=== PATIENT | male | born 1990 | race Caucasian/White ===

== ENCOUNTER 2017-02-15 16:31 | Emergency (ER) | payer MEDICAID ==
[~2017-02-15] VITALS: Ht 170.2 cm; Wt 65.8 kg
[~2017-02-15 16:31] MED LIST: DOXYCYCLINE100 M6 PO
--- OUTSIDE RECORDS SUMMARY | 2017-02-15 16:39 | External Medical Summary Rpt ---
Author Author COURTNEY [place] Organization [facility] Saint [place] Adams Address Unknown Phone Unavailable Care Team Providers Care Wood Model Maker Name Role Phone DR DUSTIN PCP [phone] Encounter [facility] [id number] Date(s): 09/03/16 - 09/03/16 [facility] Saint Jose Adams [address] [place] [address]- Discharge Diagnosis: Urethritis Discharge Disposition: OP Self Care or Home Attending Physician: LISA REYES MD Admitting Physician: LISA REYES MD Referring Physician: LISA REYES MD Reason for Visit CUTANEOUS ABSCESS OF RIGHT LOWER LIMB Vital Signs Most recent 1 to oldest [Reference Range]: Temperature Oral Source (09/03/16 6:22 PM) Temperature Fahrenheit Mode (09/03/16 6:22 PM) Temperature, 97.6 Deg F Fahrenheit (09/03/16 6:22 PM) [96.8-99.7 Deg F] Clinical 36.4 Deg C Temperature, (09/03/16 6:22 PM) C Peripheral 96 bpm Pulse Rate (09/03/16 6:22 PM) [60-100 bpm] Respiratory 16 Breaths/Min Rate [14-20 (09/03/16 6:22 PM) Breaths/Min] Blood 138/67 mmHg Pressure (09/03/16 6:22 PM) [90-140/60-9 0 mmHg] Oxygen 98 % Saturation (09/03/16 6:22 PM) [94-100 %] Oxygen Room air Therapy Mode (09/03/16 6:22 PM) Height Stated Source (09/03/16 6:22 PM) Height Entry Davie Format (09/03/16 6:22 PM) Height/Lengt 5 ft h, DANISH (09/03/16 6:22 PM) (ft) Height/Lengt 7 Inch h DANISH (09/03/16 6:22 PM) CLINICALHEIG 170.18 cm HT (09/03/16 6:22 PM) Weight Critical estimated dosing weight Source, ED (09/03/16 6:22 PM) Weight Entry Davie Format (09/03/16 6:22 PM) Weight 155 lb Mozambican lb (09/03/16 6:22 PM) CLINICALWEIG 70.45 kg HT (09/03/16 6:22 PM) Body Surface 1.82 m2 Area (BSA) (09/03/16 6:22 PM) Body Mass 24.3 kg/m2 Index (BMI) *HI* [19.0-24.0 (09/03/16 6:22 PM) kg/m2] Spencer Body 65 kg Weight (09/03/16 6:22 PM) Problem List No data available for this section Allergies, Adverse Reactions, Alerts No Known Medication Allergies Medications doxycycline (doxycycline monohydrate 100 mg oral capsule)1 Cap, Oral, Two Times A Day, 7 Day(s), Refills: 0Ordering provider: GEOVANY QUINTERO PA-SHANE Results URINALYSIS Most recent 1 to oldest [Reference Range]: Urine Type U CleanCatch (09/03/16 6:32 PM) Urine Color Yellow (09/03/16 6:32 PM) Urine Clear Appearance (09/03/16 6:32 PM) Urine 1.025 Specific (09/03/16 6:32 PM) [place] [1.005-1.030 ] Urine pH 7.0 Dipstick (09/03/16 6:32 PM) [6.0-8.0] Urine Negative Leukocyte (09/03/16 6:32 PM) Esterase [Negative] Urine Negative Nitrite (09/03/16 6:32 PM) [Negative] Urine 30 Protein *ABN* Dipstick (09/03/16 6:32 PM) [Negative] Urine Negative Glucose (09/03/16 6:32 PM) Dipstick [Negative] Urine Negative Ketones (09/03/16 6:32 PM) Dipstick [Negative] Urine 1.0 EU/dL Urobilinogen *ABN* Dipstick (09/03/16 6:32 PM) Urine Negative Bilirubin (09/03/16 6:32 PM) Dipstick [Negative] Urine Blood Negative Dipstick (09/03/16 6:32 PM) [Negative] Ur RBC 0-2 /HPF *ABN* (09/03/16 6:32 PM) Ur WBC 0-2 /HPF (09/03/16 6:32 PM) Ur Bacteria Trace *ABN* (09/03/16 6:32 PM) Ur Mucous Trace *ABN* (09/03/16 6:32 PM) Ur Squamous 0-2 /HPF Epithelial (09/03/16 6:32 PM) Cells Immunizations No data available for this section Procedures No data available for this section Social History Social History Response Type Smoking Status Never smoker Assessment and Plan No data available for this section Hospital Discharge Instructions Patient EducationUrethritis, Adult
--- OUTSIDE RECORDS SUMMARY | 2017-02-15 16:39 | External Medical Summary Rpt ---
Author Author COURTNEY [facility] Organization [facility] Saint Jose Adams Address Unknown Phone Unavailable Care Team Providers Care Book Canvasser Name Role Phone DR DUSTIN PCP [phone] Encounter [facility] [id number] Date(s): 09/03/16 - 09/03/16 [facility] [place] Adams [address] [place] [address]- Discharge Diagnosis: Urethritis Discharge Disposition: OP Self [...] Stated Source (09/03/16 6:22 PM) Height Entry [place] Format (09/03/16 6:22 PM) Height/Lengt 5 ft h, ICELANDIC (09/03/16 6:22 PM) (ft) Height/Lengt 7 Inch h ICELANDIC (09/03/16 6:22 PM) CLINICALHEIG 170.18 cm HT (09/03/16 6:22 PM) Weight Critical estimated dosing weight Source, ED (09/03/16 6:22 PM) Weight Entry Dickinson Format (09/03/16 6:22 PM) Weight 155 lb American lb (09/03/16 6:22 PM) CLINICALWEIG 70.45 kg HT (09/03/16 6:22 PM) Body Surface 1.82 m2 Area (BSA) (09/03/16 6:22 PM) Body Mass 24.3 kg/m2 Index (BMI) *HI* [19.0-24.0 (09/03/16 6:22 PM) kg/m2] [place] Body 65 kg Weight (09/03/16 6:22 PM) [...] PM) Urine 1.025 Specific (09/03/16 6:32 PM) [place] [1.005-1.030 ] Urine pH 7.0 Dipstick (09/03/16 [...]
--- OUTSIDE RECORDS SUMMARY | 2017-02-15 16:41 | External Medical Summary Rpt | CCD ---
Author Author , ANGEL ORTIZ Address Unknown Phone [email or web address] Purpose Continuity of Care Document - 05-23-2016 through 2016 Problems Code Diagnosis DOS Provider Status Z20.2 CONTACT W AND EXPOSURE TO INFECT W A SEXL MODE OF TRANSMISS Results Labs Lab Lab Date Result Refere Interp Status Commen Order Detail nces retati t Range on HEPATITIS C VIRUS SCREEN (09-20-2016 16:15) HEPATIT NON-INNA complet IS C 017 CTIVE ed VIRUS 16:15 SCREEN CHLAMYDIA AND GONORRHEA TESTING (09-20-2016 16:15) Chlamyd NEGATIV complet ia 017 E ed trachom 16:15 atis rRNA [Presen ce] in Unspeci fied specime n by Probe & target amplifi cation method Neisser NEGATIV complet ia 017 E ed gonorrh 16:15 oeae rRNA [Presen ce] in Unspeci fied specime n by Probe & target amplifi cation method Treponema pallidum IgG Ab [Presence] in Serum by Immunoassay (09-20-2016 16:15) Trepone NON-INNA complet ma 017 CTIVE ed pallidu 16:15 m IgG Ab [Presen ce] in Serum by Immunoa ssay HEPATITIS C VIRUS SCREEN (09-20-2016 16:15) IV DRUG NO complet USER 017 ed 16:15 MAN WHO NO complet SLEEPS 017 ed WITH 16:15 MEN DATE OF 2016- complet 017 -13 ed SPECIME 16:15 FREEZER N REFRIGE RATION SPECIME PPT complet N TYPE 017 ed 16:15 PREVIOU NO complet S 017 ed POSITIV 16:15 E HEPC ANTIBOD Y TEST HEPATIT Pending complet IS C 017 ed VIRUS 16:15 SCREEN CHLAMYDIA AND GONORRHEA TESTING (09-20-2016 16:15) COLLECT RN complet OR 017 ed 16:15 ETHNICI WHITE, complet TY 017 NON-HIS ed 16:15 PANIC KIT 09-20- 08-31-1 complet EXPIRAT 017 7 ed ION 16:15 DATE SYMPTOM YES complet S 017 ed 16:15 REASON SEX complet FOR 017 PARTNER ed REQUEST 16:15 REFERRA L SPECIME URINE complet N 017 ed SOURCE 16:15 PREGNAN NO complet T 017 ed 16:15 CHART [id number] complet NUMBER [id number] ed 16:15 Chlamyd Pending complet ia 017 ed trachom 16:15 atis rRNA [Presen ce] in Unspeci fied specime n by Probe & target amplifi cation method Neisser Pending complet ia 017 ed gonorrh 16:15 oeae rRNA [Presen ce] in Unspeci fied specime n by Probe & target amplifi cation method Treponema pallidum IgG Ab [Presence] in Serum by Immunoassay (09-20-2016 16:15) COLLECT RN complet OR 017 ed 16:15 ETHNICI W complet TY 017 ed 16:15 PURPOSE DIAGNOS complet OF 017 TIC ed EXAM 16:15 SPECIME BLOOD complet N 017 ed SOURCE 16:15 CHART [id number] complet NUMBER [id number] ed 16:15 Trepone Pending complet ma 017 ed pallidu 16:15 m IgG Ab [Presen ce] in Serum by Immunoa ssay CHLAMYDIA AND GONORRHEA TESTING (05-23-2016 08:30) Chlamyd NEGATIV complet ia 017 E ed trachom 08:30 atis rRNA [Presen ce] in Unspeci fied specime n by Probe & target amplifi cation method Neisser NEGATIV complet ia 017 E ed gonorrh 08:30 oeae rRNA [Presen ce] in Unspeci fied specime n by Probe & target amplifi cation method CHLAMYDIA AND GONORRHEA TESTING (05-23-2016 08:30) COLLECT SR complet OR 017 ed 08:30 ETHNICI WHITE, complet TY 017 NON-HIS ed 08:30 PANIC KIT 2017- complet EXPIRAT 017 -31 ed ION 08:30 DATE SYMPTOM NO complet S 017 ed 08:30 REASON VOLUNTE complet FOR 017 ER/MEDI ed REQUEST 08:30 REANNA PROBLEM SPECIME URINE complet N 017 ed SOURCE 08:30 PREGNAN NO complet T 017 ed 08:30 CHART NA complet NUMBER 017 ed 08:30 Chlamyd Pending complet ia 017 ed trachom 08:30 atis rRNA [Presen ce] in Unspeci fied specime n by Probe & target amplifi cation method Neisser Pending complet ia 017 ed gonorrh 08:30 oeae rRNA [Presen ce] in Unspeci fied specime n by Probe & target amplifi cation method
--- OUTSIDE RECORDS SUMMARY | 2017-02-15 16:41 | External Medical Summary Rpt | CCD ---
Author Author [facility] Organization [facility] Address Unknown Phone Unavailable Purpose Continuity of Care Document - through 2016
--- OUTSIDE RECORDS SUMMARY | 2017-02-15 16:41 | External Medical Summary Rpt | CCD ---
Author Author , ANGEL ORTIZ Address Unknown Phone [email or web address] Purpose Continuity of Care Document - 05-23-2016 [...] NO complet T 017 ed 16:15 CHART [id number] complet NUMBER [id number] 51 ed 16:15 Chlamyd [...] complet N 017 ed SOURCE 16:15 CHART [id number] complet NUMBER [id number] 51 ed 16:15 Trepone [...]
--- NOTE | 2017-02-15 16:42 | Emergency Room Report ---
History of Present Illness Time Seen by MD Silva Comment The patient is brought in by police. He complains of LEFT knee pain. He says that he has injured it a couple of times, starting about a week ago. He says that something on the lateral side feels like it pops out of place. However, he states that the kneecap does not move and it does not sound like a dislocated patella. It happened for the third time today when being chased by police. He has some abrasions, he denies any other injuries or medical complaints. He is on no medications. ALLERGIES Coded Allergies: No Known Allergies (02/26/16) Home Medications Active Scripts DOXYCYCLINE HYCLATE (Doxycycline Hyclate) 100 MG PO BID #28 CAP Prov: 02/26/16 History Medical History General CAD? No Angina: No MO: No Hypertension? No Hyperlipidemia? No CHF? No DVT? No PE? No COPD? No Asthma? No Anemia? No GERD? No Gastric ulcers? No GI Bleed? No Hernia? No Thyroid Problems? No Hypothyroidism? No CVA? No Seizures? No Diabetes? No Renal Insuffiency? No End Stage Renal Disease? No UTI? No Stones? No BPH? No GB Disease: No Nephritic Syndrome? No Asplenia? No Hepatitis? No Sickle Cell Disease? No Arthritis? No Migraines? No Cataracts? No Glaucoma? No MRSA? No HIV? No TB? No Anxiety? No Depression? No Cancer? No More? No Immunization Hx Ped.Immunizations UTD Yes DT/Tetanus Unknown Surgical Hx Previous Surgery?N Social History Smoking Hx Smoker: Never Smoker Tobacco: No Type N/A Are you/the child exposed to second-hand smoke: No Alcohol Alcohol: No Review of Systems All Other Systems Reviewed and Negative Musculoskeletal joint pain Skin see HPI Physical Exam Vital Signs Vital Signs Date Time Temp Pulse Resp B/P Pulse O2 O2 Flow FiO2 Ox Delivery Rate 02/15 1701 97.7 92 18 138/88 99 02/15 1633 97.7 85 18 152/79 99 General Appearance no apparent distress, in handcuffs and leg shackles., superficial abrasions on skin, scattered Eye Exam - bilateral eye normal exam, bilateral eye PERRL, bilateral eye EOMI Ear, Nose, Throat hearing grossly normal, normal ENT inspection Neck supple, full range of motion Respiratory Status No: respiratory distress. Lung Sounds bilateral: normal breath sounds, lungs clear. Cardiovascular regular rate/rhythm, no murmur, normal peripheral pulses Peripheral Pulses Pulses normal Yes Gastrointestinal normal bowel sounds, normal exam, non tender Back normal inspection Extremities no effusion or deformity of LEFT knee. Tenderness laterally. Normal range of motion. Normal neurovascular status. Neurologic alert, compatibility test engineer II-XII nml as tested, normal exam, no motor/sensory deficits Medical Decision Making LABS/Meds/Orders Pt receiving controlled substance in ED? No Results/Orders Orders Procedure Date/time Status KNEE-3 VIEWS-LT 02/15 1639 Active XRAY/CT/US XRAY/CT/US XRAY knee Comment X-ray interpreted by Jose Santos MD. Negative for fracture, dislocation, or foreign body. Progress - The patient has been medically evaluated and I find no significant medical condition to prevent disposition to [facility]. The patient is medically cleared. Departure Departure Disposition DC Home or Self Care(routine) Clinical Impression Primary Impression: Left knee sprain Qualifiers: Encounter type: initial encounter Involved ligament of knee: unspecified ligament Qualified Code: S83.92XA - Sprain of unspecified site of left knee, initial encounter Condition STABLE Referrals NO REFERRAL Matthew Mcdonnell MD Orthopedics: Call for appointment Patient Instructions DI for Knee Sprain Additional Instructions Follow-up with orthopedics after you are released from [facility]. ED Critical Care Critical Care No at 1804
--- NOTE | 2017-02-15 16:42 | Emergency Room Report ---
History of Present Illness Time Seen by MD Silva Comment The patient is brought in by police. He complains of LEFT knee pain. He says that he has injured it a couple of times, starting about a week ago. He says that something on the lateral side feels like it pops out of place. However, he states that the kneecap does not move and it does not sound like a dislocated patella. It happened for the third time today when being chased by police. He has some abrasions, he denies any other injuries or medical complaints. He is on no medications. ALLERGIES Coded Allergies: No Known Allergies (02/26/16) Home Medications Active Scripts DOXYCYCLINE HYCLATE (Doxycycline Hyclate) 100 MG PO BID #28 CAP Prov: 02/26/16 History Medical History General CAD? No Angina: No CA: No Hypertension? No Hyperlipidemia? No CHF? No DVT? No PE? No COPD? No Asthma? No Anemia? No GERD? No Gastric ulcers? No GI Bleed? No Hernia? No Thyroid Problems? No Hypothyroidism? No CVA? No Seizures? No Diabetes? No Renal Insuffiency? No End Stage Renal Disease? No UTI? No Stones? No BPH? No GB Disease: No Nephritic Syndrome? No Asplenia? No Hepatitis? No Sickle Cell Disease? No Arthritis? No Migraines? No Cataracts? No Glaucoma? No MRSA? No HIV? No TB? No Anxiety? No Depression? No Cancer? No More? No Immunization Hx Ped.Immunizations UTD Yes DT/Tetanus Unknown Surgical Hx Previous Surgery?N Social History Smoking Hx Smoker: Never Smoker Tobacco: No Type N/A Are you/the child exposed to second-hand smoke: No Alcohol Alcohol: No Review of Systems All Other Systems Reviewed and Negative Musculoskeletal joint pain Skin see HPI Physical Exam Vital Signs Vital Signs Date Time Temp Pulse Resp B/P Pulse O2 O2 Flow FiO2 Ox Delivery Rate 02/15 1701 97.7 92 18 138/88 99 02/15 1633 97.7 85 18 152/79 99 General Appearance no apparent distress, in handcuffs and leg shackles., superficial abrasions on skin, scattered Eye Exam - bilateral eye normal exam, bilateral eye PERRL, bilateral eye EOMI Ear, Nose, Throat hearing grossly normal, normal ENT inspection Neck supple, full range of motion Respiratory Status No: respiratory distress. Lung Sounds bilateral: normal breath sounds, lungs clear. Cardiovascular regular rate/rhythm, no murmur, normal peripheral pulses Peripheral Pulses Pulses normal Yes Gastrointestinal normal bowel sounds, normal exam, non tender Back normal inspection Extremities no effusion or deformity of LEFT knee. Tenderness laterally. Normal range of motion. Normal neurovascular status. Neurologic alert, insecticide maker II-XII nml as tested, normal exam, no motor/sensory deficits Medical Decision Making LABS/Meds/Orders Pt receiving controlled substance in ED? No Results/Orders Orders Procedure Date/time Status KNEE-3 VIEWS-LT 02/15 1639 Active XRAY/CT/US XRAY/CT/US XRAY knee Comment X-ray interpreted by Jose Santos MD. Negative for fracture, dislocation, or foreign body. Progress - The patient has been medically evaluated and I find no significant medical condition to prevent disposition to prison. The patient is medically cleared. Departure Departure Disposition DC Home or Self Care(routine) Clinical Impression Primary Impression: Left knee sprain Qualifiers: Encounter type: initial encounter Involved ligament of knee: unspecified ligament Qualified Code: S83.92XA - Sprain of unspecified site of left knee, initial encounter Condition STABLE Referrals NO REFERRAL Matthew Mcdonnell MD Orthopedics: Call for appointment Patient Instructions DI for Knee Sprain Additional Instructions Follow-up with orthopedics after you are released from prison. ED Critical Care Critical Care No at 1804
--- OUTSIDE RECORDS SUMMARY | 2017-02-15 16:42 | External Medical Summary Rpt | CCD ---
Demographics Preferred Language Maldivian Marital Status Unknown Sabianist Affiliation Unknown Race Unknown Ethnic Group Unknown Author Author , ANGEL ORTIZ Address Unknown Phone Immunization No patient found.
--- OUTSIDE RECORDS SUMMARY | 2017-02-15 16:42 | External Medical Summary Rpt ---
Author Author ANGEL PlaySay, ANGEL [employer] Organization [employer] Address Unknown Phone Unavailable Results HEPATITIS C VIRUS SCREEN Observa Value Referen Units Interpr Notes Date tion ce etation Range IV DRUG NO No No No No Sep 20 USER informa informa informa informa 2017 tion in tion in tion in tion in 4:15 PM source source source source data data data data MAN WHO NO No No No No Sep 20 SLEEPS informa informa informa informa 2017 WITH tion in tion in tion in tion in 4:15 PM MEN source source source source data data data data DATE OF 2016-09 No No No No Sep 20 - informa informa informa informa 2017 SPECIME FREEZER tion in tion in tion in tion in 4:15 PM N source source source source REFRIGE data data data data RATION SPECIME PPT No No No No Sep 20 N TYPE informa informa informa informa 2017 tion in tion in tion in tion in 4:15 PM source source source source data data data data PREVIOU NO No No No No Sep 20 S informa informa informa informa 2017 POSITIV tion in tion in tion in tion in 4:15 PM E HEPC source source source source ANTIBOD data data data data Y TEST HEPATIT NON-INNA No No No METHOD Sep 20 IS C CTIVE informa informa informa OF 2017 VIRUS tion in tion in tion in ANALYSI 4:15 PM SCREEN source source source S: data data data EIANORM AL RANGE: NON REACTIV E\.br\T his report contain s patient informa tion that must be protect ed in accorda nce with the Health Insuran ce Portabi lity and Account ability Act. CHLAMYDIA AND GONORRHEA TESTING Observa Value Referen Units Interpr Notes Date tion ce etation Range COLLECT RN No No No No Sep 20 OR informa informa informa informa 2017 tion in tion in tion in tion in 4:15 PM source source source source data data data data ETHNICI WHITE, No No No No Sep 20 TY NON-HIS informa informa informa informa 2017 PANIC tion in tion in tion in tion in 4:15 PM source source source source data data data data KIT 08-31-1 No No No No Sep 20 EXPIRAT 7 informa informa informa informa 2017 ION tion in tion in tion in tion in 4:15 PM DATE source source source source data data data data SYMPTOM YES No No No No Sep 20 S informa informa informa informa 2017 tion in tion in tion in tion in 4:15 PM source source source source data data data data REASON SEX No No No No Sep 20 FOR PARTNER informa informa informa informa 2017 REQUEST tion in tion in tion in tion in 4:15 PM REFERRA source source source source L data data data data SPECIME URINE No No No No Sep 20 N informa informa informa informa 2017 SOURCE tion in tion in tion in tion in 4:15 PM source source source source data data data data PREGNAN NO No No No No Sep 20 T informa informa informa informa 2017 tion in tion in tion in tion in 4:15 PM source source source source data data data data CHART [id number] No No No No Sep 20 NUMBER 51 informa informa informa informa 2017 tion in tion in tion in tion in 4:15 PM source source source source data data data data Chlamyd NEGATIV No No No NEGATIV Sep 20 ia E informa informa informa E 2017 trachom tion in tion in tion in RESULT= 4:15 PM atis source source source WITHIN rRNA data data data NORMAL [Presen ce] in LIMITSP Unspeci OSITIVE fied specime RESULT= n by Probe & ABNORMA target LEQUIVO REANNA amplifi RESULT= cation method INDETER MINATEU NSATISF ACTORY RESULT= INVALID Neisser NEGATIV No No No NEGATIV Sep 20 ia E informa informa informa E 2017 gonorrh tion in tion in tion in RESULT= 4:15 PM oeae source source source WITHIN rRNA data data data NORMAL [Presen ce] in LIMITSP Unspeci OSITIVE fied specime RESULT= n by Probe & ABNORMA target LEQUIVO REANNA amplifi RESULT= cation method INDETER MINATEU NSATISF ACTORY RESULT= INVALID THE APTIMA COMBO 2 ASSAY IS NOT INTENDE D FOR THE EVALUAT ION OF SUSPECT EDSEXUA L ABUSE OR FOR OTHER MEDICO- LEGAL INDICAT IONS. FOR THOSE PATIENT S FORWHOM A FALSE POSITIV E RESULT MAY HAVE ADVERSE PSYCHO- SOCIAL IMPACT, THE [facility] MMENDS RETESTI NG.\.br \This report contain s patient informa tion that [facility] Insuran ce Portabi lity and Account ability Act. Treponema pallidum IgG Ab [Presence] in Serum by Immunoassay Observa Value Referen Units Interpr Notes Date tion ce etation Range COLLECT RN No No No No Sep 20 OR informa informa informa informa 2017 tion in tion in tion in tion in 4:15 PM source source source source data data data data ETHNICI W No No No No Sep 20 TY informa informa informa informa 2017 tion in tion in tion in tion in 4:15 PM source source source source data data data data PURPOSE DIAGNOS No No No No Sep 20 OF TIC informa informa informa informa 2017 EXAM tion in tion in tion in tion in 4:15 PM source source source source data data data data SPECIME BLOOD No No No No Sep 20 N informa informa informa informa 2017 SOURCE tion in tion in tion in tion in 4:15 PM source source source source data data data data CHART [id number] No No No No Sep 20 NUMBER 51 informa informa informa informa 2017 tion in tion in tion in tion in 4:15 PM source source source source data data data data Trepone NON-INNA No No No METHOD Sep [address] informa informa informa OF 2017 pallidu tion in tion in tion in ANALYSI 4:15 PM m IgG source source source S: Ab data data data EIANORM [Presen AL ce] in RANGE: Serum NON-INNA by CTIVE\. Immunoa br\This ssay report contain s patient informa tion that [facility] with [facility] Health Insuran ce Portabi lity and Account ability Act. HEPATITIS C VIRUS SCREEN Observa Value Referen Units Interpr Notes Date tion ce etation Range IV DRUG NO No No No No Sep 20 USER informa informa informa informa 2017 tion in tion in tion in tion in 4:15 PM source source source source data data data data MAN WHO NO No No No No Sep 20 SLEEPS informa informa informa informa 2017 WITH tion in tion in tion in tion in 4:15 PM MEN source source source source data data data data DATE OF 2016-09 No No No No Sep 20 - informa informa informa informa 2017 SPECIME FREEZER tion in tion in tion in tion in 4:15 PM N source source source source REFRIGE data data data data RATION SPECIME PPT No No No No Sep 20 N TYPE informa informa informa informa 2017 tion in tion in tion in tion in 4:15 PM source source source source data data data data PREVIOU NO No No No No Sep 20 S informa informa informa informa 2017 POSITIV tion in tion in tion in tion in 4:15 PM E HEPC source source source source ANTIBOD data data data data Y TEST HEPATIT Pending No No No \.br\Sep 20 IS C informa informa informa is 2017 VIRUS tion in tion in tion in report 4:15 PM SCREEN source source source contain data data data s patient informa tion that must be protect ed in accorda nce with the Health Insuran ce Portabi lity and Account ability Act. CHLAMYDIA AND GONORRHEA TESTING Observa Value Referen Units Interpr Notes Date tion ce etation Range COLLECT RN No No No No Sep 20 OR informa informa informa informa 2017 tion in tion in tion in tion in 4:15 PM source source source source data data data data ETHNICI WHITE, No No No No Sep 20 TY NON-HIS informa informa informa informa 2017 PANIC tion in tion in tion in tion in 4:15 PM source source source source data data data data KIT 08-31-1 No No No No Sep 20 EXPIRAT 7 informa informa informa informa 2017 ION tion in tion in tion in tion in 4:15 PM DATE source source source source data data data data SYMPTOM YES No No No No Sep 20 S informa informa informa informa 2017 tion in tion in tion in tion in 4:15 PM source source source source data data data data REASON SEX No No No No Sep 20 FOR PARTNER informa informa informa informa 2017 REQUEST tion in tion in tion in tion in 4:15 PM REFERRA source source source source L data data data data SPECIME URINE No No No No Sep 20 N informa informa informa informa 2017 SOURCE tion in tion in tion in tion in 4:15 PM source source source source data data data data PREGNAN NO No No No No Sep 20 T informa informa informa informa 2017 tion in tion in tion in tion in 4:15 PM source source source source data data data data CHART [id number] No No No No Sep 20 NUMBER 51 informa informa informa informa 2017 tion in tion in tion in tion in 4:15 PM source source source source data data data data Chlamyd Pending No No No No Sep 20 ia informa informa informa informa 2017 trachom tion in tion in tion in tion in 4:15 PM atis source source source source rRNA data data data data [Presen ce] in Unspeci fied specime n by Probe & target amplifi cation method Neisser Pending No No No \.br\Sep 20 ia informa informa informa is 2017 gonorrh tion in tion in tion in report 4:15 PM oeae source source source contain rRNA data data data s [Presen patient ce] in Unspeci informa fied tion specime that n by must be Probe & target protect ed in amplifi accorda cation nce method with the Health Insuran ce Portabi lity and Account ability Act. Treponema pallidum IgG Ab [Presence] in Serum by Immunoassay Observa Value Referen Units Interpr Notes Date tion ce etation Range COLLECT RN No No No No Sep 20 OR informa informa informa informa 2017 tion in tion in tion in tion in 4:15 PM source source source source data data data data ETHNICI W No No No No Sep 20 TY informa informa informa informa 2017 tion in tion in tion in tion in 4:15 PM source source source source data data data data PURPOSE DIAGNOS No No No No Sep 20 OF TIC informa informa informa informa 2017 EXAM tion in tion in tion in tion in 4:15 PM source source source source data data data data SPECIME BLOOD No No No No Sep 20 N informa informa informa informa 2017 SOURCE tion in tion in tion in tion in 4:15 PM source source source source data data data data CHART [id number] No No No No Sep 20 NUMBER 51 informa informa informa informa 2017 tion in tion in tion in tion in 4:15 PM source source source source data data data data Trepone Pending No No No \.br\Sep 20 ma informa informa informa is 2017 pallidu tion in tion in tion in report 4:15 PM m IgG source source source contain Ab data data data s [Presen patient ce] in Serum informa by rebecca Immunoa that ssay must be protect ed in accorda nce with the Health Insuran ce Portabi lity and Account ability Act. CHLAMYDIA AND GONORRHEA TESTING Observa Value Referen Units Interpr Notes Date tion ce etation Range COLLECT SR No No No No May 23 OR informa informa informa informa 2017 tion in tion in tion in tion in 8:30 AM source source source source data data data data ETHNICI WHITE, No No No No May 23 TY NON-HIS informa informa informa informa 2017 PANIC tion in tion in tion in tion in 8:30 AM source source source source data data data data KIT 2017- No No No No May 23 EXPIRAT -31 informa informa informa informa 2017 ION tion in tion in tion in tion in 8:30 AM DATE source source source source data data data data SYMPTOM NO No No No No May 23 S informa informa informa informa 2017 tion in tion in tion in tion in 8:30 AM source source source source data data data data REASON VOLUNTE No No No No May 23 FOR ER/MEDI informa informa informa informa 2017 REQUEST REANNA tion in tion in tion in tion in 8:30 AM PROBLEM source source source source data data data data SPECIME URINE No No No No May 23 N informa informa informa informa 2017 SOURCE tion in tion in tion in tion in 8:30 AM source source source source data data data data PREGNAN NO No No No No May 23 T informa informa informa informa 2017 tion in tion in tion in tion in 8:30 AM source source source source data data data data CHART NA No No No No May 23 NUMBER informa informa informa informa 2017 tion in tion in tion in tion in 8:30 AM source source source source data data data data Chlamyd NEGATIV No No No NEGATIV May 23 ia E informa informa informa E 2017 trachom tion in tion in tion in RESULT= 8:30 AM atis source source source WITHIN rRNA data data data NORMAL [Presen ce] in LIMITSP Unspeci OSITIVE fied specime RESULT= n by Probe & ABNORMA target LEQUIVO REANNA amplifi RESULT= cation method INDETER MINATEU NSATISF ACTORY RESULT= INVALID Neisser NEGATIV No No No NEGATIV May 23 ia E informa informa informa E 2017 gonorrh tion in tion in tion in RESULT= 8:30 AM oeae source source source WITHIN rRNA data data data NORMAL [Presen ce] in LIMITSP Unspeci OSITIVE fied specime RESULT= n by Probe & ABNORMA target LEQUIVO REANNA amplifi RESULT= cation method INDETER MINATEU NSATISF ACTORY RESULT= INVALID THE APTIMA COMBO 2 ASSAY IS NOT INTENDE D FOR THE EVALUAT ION OF SUSPECT EDSEXUA L ABUSE OR FOR OTHER MEDICO- LEGAL INDICAT IONS. FOR THOSE PATIENT S FORWHOM A FALSE POSITIV E RESULT MAY HAVE ADVERSE PSYCHO- SOCIAL IMPACT, [facility] MM[facility] RET[facility] NG.\.br \This report contain s patient informa tion that must be protect ed in accorda nce with the Health Insuran ce Portabi lity and Account ability Act. CHLAMYDIA AND GONORRHEA TESTING Observa Value Referen Units Interpr Notes Date tion ce etation Range COLLECT SR No No No No May 23 OR informa informa informa informa 2017 tion in tion in tion in tion in 8:30 AM source source source source data data data data ETHNICI WHITE, No No No No Feb 13 TY NON-HIS informa informa informa informa 2017 PANIC tion in tion in tion in tion in 8:30 AM source source source source data data data data KIT 2017- No No No No May 23 EXPIRAT -31 informa informa informa informa 2017 ION tion in tion in tion in tion in 8:30 AM DATE source source source source data data data data SYMPTOM NO No No No No May 23 S informa informa informa informa 2017 tion in tion in tion in tion in 8:30 AM source source source source data data data data REASON VOLUNTE No No No No May 23 FOR ER/MEDI informa informa informa informa 2017 REQUEST REANNA tion in tion in tion in tion in 8:30 AM PROBLEM source source source source data data data data SPECIME URINE No No No No May 23 N informa informa informa informa 2017 SOURCE tion in tion in tion in tion in 8:30 AM source source source source data data data data PREGNAN NO No No No No May 23 T informa informa informa informa 2017 tion in tion in tion in tion in 8:30 AM source source source source data data data data CHART NA No No No No May 23 NUMBER informa informa informa informa 2017 tion in tion in tion in tion in 8:30 AM source source source source data data data data Chlamyd Pending No No No No May 23 ia informa informa informa informa 2017 trachom tion in tion in tion in tion in 8:30 AM atis source source source source rRNA data data data data [Presen ce] in Unspeci fied specime n by Probe & target amplifi cation method Neisser Pending No No No \.br\Th May 23 ia informa informa informa is 2017 gonorrh tion in tion in tion in report 8:30 AM oeae source source source contain rRNA data data data s [Presen patient ce] in Unspeci informa fied tion specime that n by must be Probe & target protect ed in amplifi accorda cation nce method with the Health Insuran ce Portabi lity and Account ability Act.
--- OUTSIDE RECORDS SUMMARY | 2017-02-15 16:42 | External Medical Summary Rpt ---
Author Author ANGEL mobli, [employer] Organization [employer] Address Unknown Phone Unavailable [...] source source data data data data CHART [id number] No No No No Sep 20 NUMBER [...] tion that must be protect ed [facility] with the Health Insuran ce Portabi lity [...] source source data data data data CHART [id number] No No No No Sep 20 NUMBER [...] tion that must be protect ed [facility] with the Health Insuran ce Portabi lity [...] source source data data data data CHART [id number] No No No No Sep 20 NUMBER [...] source source data data data data CHART [id number] No No No No Sep 20 NUMBER [...] MAY HAVE ADVERSE PSYCHO- SOCIAL IMPACT, [facility] NG.\.br \This report contain s [...]
--- OUTSIDE RECORDS SUMMARY | 2017-02-15 16:42 | External Medical Summary Rpt | CCD ---
Demographics Preferred Language Malaysian Marital Status Unknown Shinto Affiliation Unknown Race Unknown Ethnic Group Unknown Author Author , ANGEL ORTIZ Address Unknown Phone Immunization No patient found.
[2017-02-15 17:01] VITALS: BP 138/88
--- NOTE | 2017-02-15 20:03 | RADIOLOGY REPORT PS360 ---
KNEE-3 VIEWS-LT HISTORY: L KNEE PAIN ORDERING PHYSICIAN: Jose Santos MD PATIENT AGE: 26 years COMPARISON: None FINDINGS: No fracture or dislocation. No lytic or blastic change. Normal mineralization. No significant arthritic changes evident. No other significant findings IMPRESSION: Negative Knee
== END 2017-02-15 17:01 | disposition home or self-care (01) ==
LOC: ER 16:31
DX: S83.92XA Sprain of unspecified site of left knee, initial encounter (principal)

== ENCOUNTER 2017-03-08 14:07 | Emergency (ER) | payer MEDICAID ==
[~2017-03-08] VITALS: Ht 170.2 cm; Wt 70.3 kg
--- OUTSIDE RECORDS SUMMARY | 2017-03-08 14:16 | External Medical Summary Rpt | CCD ---
Demographics Preferred Language Ukrainian Marital Status Unknown Quaker Affiliation Unknown Race Unknown Ethnic Group Unknown Author Author , ANGEL ORTIZ Address Unknown Phone Immunization No patient found.
--- OUTSIDE RECORDS SUMMARY | 2017-03-08 14:16 | External Medical Summary Rpt | CCD ---
Author Author , ANGEL ORTIZ Address Unknown Phone [email or web address] Purpose Continuity of Care Document - 05-23-2016 through 2016 Problems Code Diagnosis DOS Provider Status N34.2 Other urethritis S83.92XA SPRAIN OF UNSPECIFIED SITE OF LEFT KNEE, INITIAL ENCOUNTER Z20.2 CONTACT W AND EXPOSURE TO INFECT [...] 017 ed WITH 16:15 MEN DATE OF 2016-09 complet 017 -13 ed SPECIME 16:15 FREEZER [...] TY 017 NON-HIS ed 16:15 PANIC KIT 08-31-1 complet EXPIRAT 017 7 ed ION 16:15 DATE SYMPTOM YES complet S 017 ed 16:15 REASON SEX complet FOR 017 PARTNER ed REQUEST 16:15 REFERRA L SPECIME URINE complet N 017 ed SOURCE 16:15 PREGNAN NO complet T 017 ed 16:15 CHART [id number] complet NUMBER 017 51 ed 16:15 Chlamyd [...] complet N 017 ed SOURCE 16:15 CHART [id number] complet NUMBER 017 51 ed 16:15 Trepone [...] TY 017 NON-HIS ed 08:30 PANIC KIT 2016- complet EXPIRAT 017 -31 ed ION 08:30 [...]
--- OUTSIDE RECORDS SUMMARY | 2017-03-08 14:16 | External Medical Summary Rpt | CCD ---
Author Author , ANGEL ORTIZ Address Unknown Phone [email or web address] Purpose Continuity of Care Document - 05-23-2016 [...] NO complet T 017 ed 16:15 CHART [id number] complet NUMBER 017 51 ed 16:15 Chlamyd [...] complet N 017 ed SOURCE 16:15 CHART [id number] complet NUMBER 017 51 ed 16:15 Trepone [...]
--- OUTSIDE RECORDS SUMMARY | 2017-03-08 14:16 | External Medical Summary Rpt | CCD ---
Demographics Preferred Language Martiniquais Marital Status Unknown Taoism Affiliation Unknown Race Unknown Ethnic Group Unknown Author Author , ANGEL ORTIZ Address Unknown Phone Immunization No patient found.
--- OUTSIDE RECORDS SUMMARY | 2017-03-08 14:17 | External Medical Summary Rpt ---
Author Author ANGEL Pete, [employer] Organization [employer] Address Unknown Phone Unavailable [...] source source data data data data CHART [id number] No No No No Sep 20 NUMBER [...] MAY HAVE ADVERSE PSYCHO- SOCIAL IMPACT, [facility] MMENDS RETESTI NG.\.br \This report contain s patient informa tion that [place] with [place] [facility] Insuran ce Portabi lity [...] source source data data data data CHART [id number] No No No No Sep 20 NUMBER [...] that must be protect ed in accorda mte with the Health Insuran ce Portabi lity [...] tion that [place] be protect [place] with the Health Insuran ce Portabi lity [...] source source data data data data CHART [id number] No No No No Sep 20 NUMBER [...] source source data data data data CHART [id number] No No No No Sep 20 NUMBER [...] [Presen patient ce] in Serum informa by tion Immunoa that ssay must be protect ed in accorda nce with the Health Insuran ce [facility] and Account ability Act. CHLAMYDIA AND GONORRHEA [...] source source data data data data KIT 2016- No No No No May 23 EXPIRAT [...] source source data data data data KIT 2016- No No No No May 23 EXPIRAT [...] cation method Neisser Pending No No No \.br\May 23 ia informa informa informa is 2017 [...]
--- OUTSIDE RECORDS SUMMARY | 2017-03-08 14:17 | External Medical Summary Rpt ---
[...] source source data data data data CHART [id number] No No No No Sep 20 NUMBER [...] MAY HAVE ADVERSE PSYCHO- SOCIAL IMPACT, [facility] MMENDS RETESTI NG.\.br \This report contain s patient informa tion that [place] with [place] Health Insuran ce Portabi lity [...] source source data data data data CHART [id number] No No No No Sep 20 NUMBER [...] that must be protect ed in [place]te with the Health Insuran ce Portabi lity [...] tion that [place] [facility] Insuran ce Portabi lity [...] source source data data data data CHART [id number] No No No No Sep 20 NUMBER [...] source source data data data data CHART [id number] No No No No Sep 20 NUMBER [...] accorda nce with the Health Insuran ce [facility] and Account ability Act. CHLAMYDIA AND GONORRHEA [...]
[2017-03-08 16:21] VITALS: BP 137/82
== END 2017-03-08 16:21 | disposition left against medical advice (07) ==
LOC: UTC 14:07
DX: Z53.21 Procedure and treatment not carried out due to patient leaving prior to being seen by health care provider (principal); J02.9 Acute pharyngitis, unspecified; R50.9 Fever, unspecified